=== PATIENT | female | born 1985 | race Two or more races ===

== ENCOUNTER 2022-05-21 15:58 | Emergency (ER) | payer SELFPAY ==
[~2022-05-21] VITALS: Ht 149.9 cm; Wt 79.4 kg
[2022-05-21] MEDS ORDERED: FAMOTIDINE (20 MG) 20 MG TABLET PO ONE (17:00)
[2022-05-21] MEDS ORDERED: FAMOTIDINE (20 MG) 20 MG TABLET ONE (17:02)
--- NOTE | 2022-05-21 17:04 | NUR ---
MEDICATED ORDERED,LAB CALLED FOR BLOOD DRAW
[2022-05-21 17:30] LABS: BASOPHILS # (AUTO) 0.1 K/uL (0.0-0.2); BASOPHILS % (AUTO) 1.1 % (0.0-2.0); HEMATOCRIT 38 % (33-45); HEMOGLOBIN 12.6 g/dL (11.5-14.8); LYMPHOCYTES # (AUTO) 2.6 K/uL (0.8-4.8); LYMPHOCYTES % (AUTO) 30.3 % (20.0-44.0); MEAN CORPUSCULAR HGB CONC 33 g/dl (31.0-36.0); MEAN CORPUSCULAR VOLUME 82 fL (82-100); MONOCYTES # (AUTO) 0.6 K/uL (0.1-1.30); MONOCYTES % (AUTO) 7.5 % (2.0-12.0); NEUTROPHILS % (AUTO) 58.1 % (43.0-81.0); PLATELET COUNT (AUTO) 312 K/uL (150-450); RED BLOOD CELL COUNT(AUTO) 4.67 MIL/uL (4.0-5.2); WHITE BLOOD COUNT (AUTO) 8.6 K/uL (4.3-11.0)
[2022-05-21 17:57] LABS: CALCIUM, SERUM 9.1 mg/dL (8.5-10.1); CARBON DIOXIDE 28 mmol/L (21-32); CHLORIDE 101 mmol/L (98-107); CREATININE 0.6 mg/dL (0.6-1.3); GLUCOSE 102 mg/dL (74-106); POTASSIUM 3.4 mmol/L (3.5-5.1); SODIUM SERUM 139 mmol/L (136-145); UREA NITROGEN, BLOOD 8 mg/dL (7-18)
--- NOTE | 2022-05-21 21:11 | NUR ---
KAYY BALL [phone]
[2022-05-21 22:30] VITALS: BP 147/72
== END 2022-05-21 22:51 | disposition home or self-care (01) ==
LOC: ER 16:06
DX: R07.89 Other chest pain (principal); R51.9 Headache, unspecified; R06.02 Shortness of breath; I10 Essential (primary) hypertension
CPT/HCPCS: 36415; 71045-TC; 80048-TC; 84484-TC; 85025-TC